=== PATIENT | male | born 1940 | race Caucasian/White ===

== ENCOUNTER 2024-05-06 08:54 | Emergency (ER) | payer MEDICARE, OTHER ==
[2024-05-06] VITALS (7 sets, daily range): BP systolic 31–139; BP diastolic 13–78
[~2024-05-06] VITALS: Ht 175.3 cm; Wt 68.2 kg
[2024-05-06] MEDS ORDERED: Diph, Acellular Pertussis, Tet 0.5 ML/VIAL (Tdap) SDV IM ONE (09:05)
[2024-05-06] MEDS ORDERED: SODIUM CHLORIDE 500 ML BTL IR ONE (09:06)
[2024-05-06 10:08] LABS: BASO% 0.5 % (0-3); EOS% 0.5 % (0-8); HEMATOCRIT 32.3 % (39.0-50.0); HEMOGLOBIN 10.8 g/dl (14.0-18.0); IMMATURE GRANULOCYTES 0.3 % (0.0-5.0); MEAN CELL VOLUME 103.2 fL CALC (80.0-100.0); MEAN CORPUSCULAR HGB 34.5 pG CALC (26.0-32.0); MEAN CORPUSCULAR HGB CONC 33.4 g/dL CAL (32.0-36.0); MONO% 7.4 % (2-13); NEUT# 7.89 thou/uL (1.82-7.42); NEUT% 73.3 % (42-76); RED BLOOD COUNT 3.13 mill/uL (4.70-6.10); RED CELL DISTRI WIDTH 15.2 % (11.5-15.5)
[2024-05-06 10:18] LABS: ALBUMIN 4.3 g/dL (3.2-5.0); BILIRUBIN, TOTAL 1.1 mg/dL (0.2-1.3); CREATININE 0.8 mg/dL (0.7-1.3); POTASSIUM 4.3 mmol/l (3.5-5.1); TOTAL PROTEIN 6.5 g/dL (6.3-8.2)
== END 2024-05-06 11:33 | disposition home or self-care (01) ==
LOC: ED 08:54
PROVIDERS: Nurse Practitioner
DX: S00.11XA Contusion of right eyelid and periocular area, initial encounter (principal); S00.01XA Abrasion of scalp, initial encounter; T14.8XXA Other injury of unspecified body region, initial encounter; F03.90 Unspecified dementia, unspecified severity, without behavioral disturbance, psychotic disturbance, mood disturbance, and anxiety; W19.XXXA Unspecified fall, initial encounter; Y92.099 Unspecified place in other non-institutional residence as the place of occurrence of the external cause

== ENCOUNTER 2024-07-20 23:38 | Emergency (ER) | payer MEDICARE ==
[~2024-07-20] VITALS: Ht 175.3 cm; Wt 63.0 kg
[2024-07-20 23:51] VITALS: BP 86/55
[2024-07-20] MEDS ORDERED: SODIUM CHLORIDE 0.9% 1,000 ML IV ONE (23:55)
[2024-07-20 23:57] VITALS: BP 107/50
[2024-07-21] VITALS (11 sets, daily range): BP systolic 92–117; BP diastolic 43–59
[2024-07-21] MEDS ORDERED: C-10001000 MG PO
[2024-07-21] MEDS ORDERED: CIT CALCIUM200 MG PO (00:01)
[2024-07-21] MEDS ORDERED: DICLOFENAC SODIUM1 % TOP (00:03)
[2024-07-21] MEDS ORDERED: DIVALPROEX125 MG PO (00:05)
[2024-07-21] MEDS ORDERED: FERROUS SULFAT325 MG PO (00:05)
[2024-07-21] MEDS ORDERED: IBUPROFEN600 MG PO (00:06)
[2024-07-21] MEDS ORDERED: FOLIC ACID1 MG PO (00:06)
[2024-07-21] MEDS ORDERED: SEROQUEL50 MG PO (00:07)
[2024-07-21] MEDS ORDERED: REMERON15 MG PO (00:07)
[2024-07-21] MEDS ORDERED: STOOL SOFTENER100 M1 PO (00:08)
[2024-07-21] MEDS ORDERED: VITAMIN D-32000 UNI1 PO (00:09)
[2024-07-21 00:12] LABS: BASO% 0.4 % (0-3); EOS% 0.7 % (0-8); IMMATURE GRANULOCYTES 0.8 % (0.0-5.0); MEAN CELL VOLUME 108.3 fL CALC (80.0-100.0); MEAN CORPUSCULAR HGB 35.2 pG CALC (26.0-32.0); MEAN CORPUSCULAR HGB CONC 32.5 g/dL CAL (32.0-36.0); MONO% 5.9 % (2-13); NEUT# 11.84 thou/uL (1.82-7.42); NEUT% 77.2 % (42-76); RED BLOOD COUNT 2.3 mill/uL (4.70-6.10); RED CELL DISTRI WIDTH 15.8 % (11.5-15.5)
[2024-07-21 00:16] LABS: HEMATOCRIT 24.9 % (39.0-50.0); HEMOGLOBIN 8.1 g/dl (14.0-18.0)
[2024-07-21 00:19] LABS: URINE BILIRUBIN - DIPSTICK Negative (NEGATIVE); URINE BLOOD DIPSTICK Negative (NEGATIVE); URINE GLUCOSE - DIPSTICK Negative (NEGATIVE); URINE KETONE Trace mg/dL (NEGATIVE); URINE LEUK ESTERASE Negative (NEGATIVE); URINE NITRITE - DIPSTICK Negative (Negative); URINE PROTEIN - DIPSTICK Negative (NEG-TRACE); URINE SPECIFIC GRAVITY 1.025; URINE UROBILINOGEN - DIPSTICK 0.2 E.U./dL (0.2)
[2024-07-21 00:20] LABS: URINE COLOR Yellow
[2024-07-21 00:25] LABS: ALBUMIN 3.7 g/dL (3.2-5.0); CREATININE 0.8 mg/dL (0.7-1.3); POTASSIUM 4.1 mmol/l (3.5-5.1)
[2024-07-21] MEDS ORDERED: SULFAMETHOXAZOLE W/TRIMETHOPRI 1 COMBO TAB PO ONE (01:05)
[2024-07-21] MEDS ORDERED: BACTRIM DS1 TAB PO (01:06)
== END 2024-07-21 02:50 ==
LOC: ED 23:38
PROVIDERS: Family Medicine
DX: Z04.3 Encounter for examination and observation following other accident (principal); F03.90 Unspecified dementia, unspecified severity, without behavioral disturbance, psychotic disturbance, mood disturbance, and anxiety; J44.9 Chronic obstructive pulmonary disease, unspecified; Z91.81 History of falling

== ENCOUNTER 2024-08-07 10:37 | Emergency (ER) | payer MEDICARE ==
[2024-08-07] VITALS (14 sets, daily range): BP systolic 77–118; BP diastolic 42–80
[~2024-08-07] VITALS: Ht 175.3 cm; Wt 80.0 kg
[~2024-08-07 10:37] MED LIST: BACTRIM DS1 TAB PO; C-10001000 MG PO; CIT CALCIUM200 MG PO; DICLOFENAC SODIUM1 % TOP; DIVALPROEX125 MG PO; FERROUS SULFAT325 MG PO; FOLIC ACID1 MG PO; IBUPROFEN600 MG PO; REMERON15 MG PO; SEROQUEL50 MG PO; STOOL SOFTENER100 M1 PO; VITAMIN D-32000 UNI1 PO
[2024-08-07] MEDS ORDERED: MORPHINE SULFATE 4 MG/ML VIAL IV ONE (11:45)
[2024-08-07 12:12] LABS: BASO% 0.8 % (0-3); EOS% 2.9 % (0-8); HEMATOCRIT 29.7 % (39.0-50.0); HEMOGLOBIN 9.9 g/dl (14.0-18.0); IMMATURE GRANULOCYTES 0.4 % (0.0-5.0); LYMPH% 39.8 % (15-41); MEAN CELL VOLUME 106.5 fL CALC (80.0-100.0); MEAN CORPUSCULAR HGB 35.5 pG CALC (26.0-32.0); MEAN CORPUSCULAR HGB CONC 33.3 g/dL CAL (32.0-36.0); MONO% 7.2 % (2-13); NEUT# 2.37 thou/uL (1.82-7.42); NEUT% 48.9 % (42-76); RED BLOOD COUNT 2.79 mill/uL (4.70-6.10); RED CELL DISTRI WIDTH 15.2 % (11.5-15.5)
[2024-08-07 12:30] LABS: ALBUMIN 3.7 g/dL (3.2-5.0); ALKALINE PHOSPHATASE 51 u/l (38-126); ANION GAP 10 (6-22 (CALC)); BILIRUBIN, TOTAL 0.6 mg/dL (0.2-1.3); BUN 18 mg/dL (8-23); BUN/CREATININE RATIO 25 (12-20 (CALC)); CARBON DIOXIDE 26 mmol/l (22-30); CHLORIDE 107 mmol/l (95-108); CPK 67 u/l (55-170); CREATININE 0.7 mg/dL (0.7-1.3); ESTIMATED GFR 92 ML/MIN (>=90 (CALC)); SGOT/AST 30 u/l (19-48); SODIUM 139 mmol/l (137-146); TOTAL PROTEIN 5.9 g/dL (6.3-8.2)
[2024-08-07] MEDS ORDERED: SODIUM CHLORIDE 0.9% 1,000 ML IV ONE (13:10)
[2024-08-07 15:58] LABS: URINE BILIRUBIN - DIPSTICK Negative (NEGATIVE); URINE BLOOD DIPSTICK Moderate (NEGATIVE); URINE COLOR Yellow; URINE GLUCOSE - DIPSTICK Negative (NEGATIVE); URINE KETONE Negative (NEGATIVE); URINE LEUK ESTERASE Negative (NEGATIVE); URINE NITRITE - DIPSTICK Negative (Negative); URINE PROTEIN - DIPSTICK Negative (NEG-TRACE); URINE UROBILINOGEN - DIPSTICK 0.2 E.U./dL (0.2)
[2024-08-07 16:03] LABS: URINE RBC 25-50 RBC/hpf (0-5); URINE TRANSITIONAL EPI. CELLS FEW hpf; URINE WBC 0-2 WBC/hpf (0-5)
== END 2024-08-07 17:15 | disposition home or self-care (01) ==
LOC: ED 10:37
PROVIDERS: Emergency Medicine
DX: S01.01XA Laceration without foreign body of scalp, initial encounter (principal); S61.411A Laceration without foreign body of right hand, initial encounter; F03.90 Unspecified dementia, unspecified severity, without behavioral disturbance, psychotic disturbance, mood disturbance, and anxiety; R64 Cachexia; W19.XXXA Unspecified fall, initial encounter; Y92.129 Unspecified place in nursing home as the place of occurrence of the external cause

== ENCOUNTER 2024-09-25 07:22 | Emergency (ER) | payer MEDICARE ==
[2024-09-25] VITALS (8 sets, daily range): BP systolic 82–126; BP diastolic 48–71
[~2024-09-25] VITALS: Ht 175.3 cm; Wt 75.0 kg
[2024-09-25] MEDS ORDERED: Diph, Acellular Pertussis, Tet 0.5 ML/VIAL (Tdap) SDV IM ONE (07:35)
== END 2024-09-25 10:07 | disposition home or self-care (01) ==
LOC: ED 07:22
DX: S61.511A Laceration without foreign body of right wrist, initial encounter (principal); W06.XXXA Fall from bed, initial encounter; Y92.129 Unspecified place in nursing home as the place of occurrence of the external cause; F03.90 Unspecified dementia, unspecified severity, without behavioral disturbance, psychotic disturbance, mood disturbance, and anxiety
CPT/HCPCS: 90715